=== PATIENT | female | born 1995 | race Caucasian/White ===

== ENCOUNTER 2024-07-31 05:21 | Inpatient (IN) ==
[2024-07-31] MEDS ORDERED: OXYTOCIN 30 UNITS/NSS 30 UNITS/500 ML BAG IV PRN (06:31)
[2024-07-31] MEDS ORDERED: LIDOCAINE 1% LOCAL 20 ML VIAL INFIL PRN (06:31)
[2024-07-31] MEDS ORDERED: ONDANSETRON INJ 2 MG/ML 2 ML VIAL IV STA (06:37)
--- NOTE | 2024-07-31 06:41 | Labor Progress Brief Note ---
Date of Service July 31, 2024 Subjective 29yo at 40w0d today c/b A1GDM, GBS+, nonimmune to HepB, presents to hospital with recent events as follows: Around midnight, awoke with disorganized cramping and a headache. Took tylenol and the headache improved, she was able to fall back asleep. At 4am awoke again with contractions that were organized, painful, and Q2-3min. She was also nauseated and began vomiting. No LOF or VB, good FM. At that point she began coming in to hospital. On arrival to hospital the patient notes her contractions seem to be easing; they were too painful to speak through when she left home, and now they're both milder and further apart. The nausea has continued and she vomited on her way up to L&D, now requesting antiemetic. She does not have BAPTISTE at this time, nor vision changes, denies swelling, but does have upper abdominal / epigastric pain along with the nausea which are new today. BP on arrival 164/93, then 154/93 on repeat. Urine dip 2+ protein. Assessment & Plan (1) Preeclampsia: Plan: Patient's initial 2 BP's were elevated and she has 2+ protein on urine dip. This leads me to diagnose preeclampsia. We discussed that she may or may not be in early labor as well, but at 40wk the preeclampsia means I would like to admit and augment vs induce labor for her. She is agreeable to that. Presently her BAPTISTE has resolved, and she has no clonus, no RUQ ttp nor edema on exam. We will check labs/serial BP but hold off diagnosing her with severe features at this time. Patient is to notify us promptly if her BAPTISTE returns. She is aware that magnesium therapy will be initiated if she qualifies as with severe features. A1GDM with most recent growth scan EFW 40, AC 39. Vertex at that time on 07/08. Will check FSBG here on L&D. GBS pos and agreeable to PCN, no allergies. Comfortable starting pitocin as contractions have spaced apart, does not desire trial of exp mgmt. Physical Exam Physical Exam: Semi-leung, alert, NAD. Speaking fluidly. Mother and FOB at bedside. Eyes: PERRL, conjunctivae normal, anicteric sclerae Neck: supple Respiratory: normal respiratory effort and able to speak in complete sentences; no respiratory distress Cardiovascular: Rate/Rhythm: regular rate and regular rhythm Gastrointestinal (Abdomen): Gravid / AGA, nontender Musculoskeletal: no cyanosis or clubbing, extremities motor strength 5/5 Skin: no rashes, warm and dry Neurologic: patellar DTR slightly brisk but no clonus, no pedal edema Psychiatric: A+Ox3, euthymic affect Genitourinary: Per RN exam pt is 2/60/-2 and posterior. Nurse felt confident the vertex was presenting. No LOF, no VB evident. Results & Data Vital Signs (Past 12 Hours) Vital Signs Temp Pulse Resp BP O2 Del Method 07/31/24 06:03 66 154/93 H 07/31/24 05:50 97.7 F 18 Room Air 07/31/24 05:44 97.7 F 62 18 164/93 H Coding Level of Care Code None Diagnoses Preeclampsia O14.90
[2024-07-31] MEDS: LACTATED RINGER'S 1,000 ML IV PRN (07:05)
[2024-07-31 07:10] LABS: Creatinine Urine Random 249.7 mg/dl; Protein Creatinine Ratio Urine 0.6 (0-0.2); Total Protein Urine Random 153.1 mg/dl (0-11.9)
[2024-07-31] MEDS: OXYTOCIN 30 UNITS/NSS 30 UNITS/500 ML BAG IV PRN ×2 (07:30→21:30)
[2024-07-31 07:36] LABS: Hemoglobin 12.9 g/dl (12.0-16.0); Mean Corpuscular Hemoglobin 28.3 pg (25.0-34.0); Mean Corpuscular Hgb Conc 33.9 g/dL (32.0-36.0); Mean Corpuscular Volume 83.3 fL (80.0-100.0); Mean Platelet Volume 10.6 fL (9.4-12.4); Platelet Count 216 K/uL (130-400); RDW Coefficient of Variation 13.9 % (11.5-14.5); RDW Standard Deviation 42.3 fL (36.4-46.3); Red Blood Count 4.56 M/uL (4.20-5.40); White Blood Count 14.06 K/ul (4.8-10.8)
[2024-07-31 07:46] LABS: Albumin Globulin Ratio 1.1 (0.9-2); Albumin Level 3.2 gm/dl (3.4-5.0); BUN Creatinine Ratio 19.1 (10-20); Bilirubin Direct 0.2 mg/dl (0-0.2); Bilirubin,Total 0.9 mg/dl (0.2-1.0); Calcium 8.5 mg/dl (8.6-10.3); Creatinine Clr Calc Pharmacy 130.2 ml/min; Globulin 2.8 gm/dl (2.5-4.0); Potassium 4.9 mmol/L (3.5-5.1)
--- NOTE | 2024-07-31 07:57 | Anesthesiology Consultation ---
Date of Service July 31, 2024 Assessment & Plan Chart Review Chart Review: Acceptable Risk for Surgery and Patient NOT seen in Pre Admission Testing Consults Requested none ASA ASA3 Proposed Anesthesia Anesthesia Type: Labor Epidural and CSE History Height/Weight Height: 5 ft 4 in Weight: 88.451 kg Allergies Allergy/AdvReac Type Severity Reaction Status Date / Time No Known Allergies Allergy Verified 07/31/24 05:48 Medications Home Medications Medication Instructions Recorded Confirmed Last Taken 21-iron fu-folic acid 1 tab PO DAILY 12/15/23 07/31/24 07/30/24 [ Complete] acetone (urine) test (Ketone Urine #50 ea 03/11/24 07/28/24 Unknown Test strips) blood sugar diagnostic (OneTouch #150 ea 03/11/24 07/28/24 Unknown Verio test strips) blood-glucose meter (OneTouch #1 ea 03/11/24 07/28/24 Unknown Verio Reflect Meter) lancets 33 gauge (OneTouch Delica #150 ea 03/11/24 07/28/24 Unknown Plus Lancet) Active Medications Generic Name Dose Route Start Last Admin Trade Name Freq PRN Reason Stop Dose Admin Lactated Ringer's 1,000 mls @ 125 mls/hr 07/31/24 06:31 07/31/24 07:30 Lr IV 08/01/24 06:30 125 mls/hr .Q8H PRN Infusion L&D Protocol Protocol Oxytocin 30 units in 500 mls @ 2 mls/hr 07/31/24 06:31 07/31/24 07:30 Pitocin 30 Units/Nss IV 08/02/24 06:30 0.12 units/hr .Q24H PRN 2 mls/hr Labor Induction/Augmentation Administration Protocol 0.12 UNITS/HR Past Medical History Medical History Varicella vaccination Left ureteral calculus Hydronephrosis Pelvic pain Abnormal ultrasound of uterus Nephrolithiasis age 4 Hyperlipidemia Kidney stone on left side History of kidney infection AGE 4 & SOMETHING WITH REFLUX IN URETER obese Gestational DM Gerd Preeclampsia Exercise / Class Metabolic Activity II 4-5 Yardwork/Stairs/Walk up hill Past Family History Family History Mother Cervical cancer age 40s Grandmother (Maternal) Myocardial infarction Coronary heart disease Father Hypertension Dyslipidemia Denies family history of Ovarian cancer Prostate cancer Breast cancer Colorectal cancer Past Surgical History Surgical History History of lithotripsy H/O wisdom tooth extraction Past Anesthesia History No Hx of Anesthesia Complications and No Family Hx of Anesthesia Complications History of PONV No Hx of PONV and No Hx of Motion Sickness Social History Smoking Status: Never smoker Do You Dip or Chew Tobacco: No Hx Alcohol Use: Yes alcohol intake frequency: holidays/special occasions only Hx Substance Use: No substance use type: does not use Physical Exam Vital Signs Last Vital Signs Temp 36.3 C L 07/31/24 07:01 Pulse 75 07/31/24 07:47 Resp 20 07/31/24 07:01 BP 138/90 07/31/24 07:47 O2 Del Method Room Air 07/31/24 05:50 Testing Laboratory Results 07/31/24 07:13 07/31/24 07:13 07/31/24 07:08 POC Glucose 120 H
--- NOTE | 2024-07-31 08:14 | Labor Progress Brief Note ---
Date of Service July 31, 2024 Assessment & Plan (1) Preeclampsia: Plan: AST/ALT elevated to multiples of normal. Cr, Plt OK currently. Will initiate magnesium therapy. Glucose below 130 so no need for insulin protocol at this time. Admission and Anticipated Discharge Date Admission Date: July 31, 2024 Results & Data Vital Signs (Past 12 Hours) Vital Signs Temp Pulse Resp BP O2 Del Method 07/31/24 08:00 75 143/92 H 07/31/24 07:47 75 138/90 07/31/24 07:30 78 148/98 H 07/31/24 07:17 73 144/93 H 07/31/24 07:01 20 07/31/24 07:01 97.3 F L 20 07/31/24 07:00 71 139/91 07/31/24 06:03 66 154/93 H 07/31/24 05:50 97.7 F 18 Room Air 07/31/24 05:44 97.7 F 62 18 164/93 H Laboratory Results Laboratory Results - last 24 hr 07/31/24 07/31/24 07/31/24 05:45 07:08 07:13 WBC 14.06 H RBC 4.56 Hgb 12.9 Hct 38.0 MCV 83.3 MCH 28.3 MCHC 33.9 RDW Std Deviation 42.3 RDW Coeff of Helder 13.9 Plt Count 216 MPV 10.6 Sodium 136 Potassium 4.9 Chloride 105 Carbon Dioxide 25 Anion Gap 6 BUN 13 Creatinine 0.68 Est Cr Clr Drug Dosing 130.2 eGFR 120.08 BUN/Creatinine Ratio 19.1 Glucose 120 H POC Glucose 120 H Calcium 8.5 L Total Bilirubin 0.9 Direct Bilirubin 0.2 AST 176 H ALT 146 H Alkaline Phosphatase 175 H Total Protein 6.0 Albumin 3.2 L Globulin 2.8 Albumin/Globulin Ratio 1.1 Ur Random Creatinine 249.7 U Random Total Protein 153.1 H Protein/Creatinin Ratio 0.6 H Treponema pallidum Ab Pending Vital Signs Temp Pulse Resp BP O2 Del Method 07/31/24 08:00 75 143/92 H 07/31/24 07:47 75 138/90 07/31/24 07:30 78 148/98 H 07/31/24 07:17 73 144/93 H 07/31/24 07:01 20 07/31/24 07:01 97.3 F L 20 07/31/24 07:00 71 139/91 07/31/24 06:03 66 154/93 H 07/31/24 05:50 97.7 F 18 Room Air 07/31/24 05:44 97.7 F 62 18 164/93 H Intake and Output 07/30/24 07/31/24 07/31/24 22:59 06:59 14:59 Intake Total 416.25 / 416.25 Balance 416.25 / 416.25 Intake: IV 416.25 / 416.25 Lactated Ringer's 1,000 ml @ 416.25 / 416.25 125 mls/hr IV .Q8H PRN Rx#: [id number] Other: Weight 195 lb 195 lb Weight Measurement Method Last Office Visit Patient Weight 08/01/24 06:59 Weight 195 lb Coding Level of Care Code None Diagnoses Preeclampsia O14.90
[2024-07-31] MEDS: PENICILLIN GK 6 MU in DEXTROSE 5% 250 ML IV STA (08:17)
[2024-07-31] MEDS: LIDOCAINE 2% JELLY 5 ML TUBE EXT ONE (08:43)
[2024-07-31] MEDS: MAGNESIUM SULFATE / WTR 40 GM/1,000 ML BAG IV SCH (08:43)
--- NOTE | 2024-07-31 08:43 | Labor Progress Brief Note ---
Date of Service July 31, 2024 Subjective Resting in bed. Went with Dr. Gaspar when discussing the initiation of mag for severe pet by liver function criteria. Pressures are elevated but not in severe range. all other labs within normal limits. Assessment & Plan (1) Preeclampsia: (2) Gestational diabetes: Plan iol for severe pet. initiating magnesium. fht mostly category one, but will need close following as has had periods of minimal variability, and this is the appearance prior to initiating mag. plan bolus and position change as she is currently flat on her back. Plan discussed with the patient , Dr. Gaspar and support person. Admission and Anticipated Discharge Date Admission Date: July 31, 2024 Physical Exam Physical Exam: cx--deferred toco--q2-4, pit at 2 efm--150s with mostly mod variability, but short periods of minimal variability, small accels, no 15x15, some ? decels--will bolus and do position changes Results & Data Vital Signs (Past 12 Hours) Vital Signs Temp Pulse Resp BP O2 Del Method 07/31/24 08:00 75 143/92 H 07/31/24 07:47 75 138/90 07/31/24 07:30 78 148/98 H 07/31/24 07:17 73 144/93 H 07/31/24 07:01 20 07/31/24 07:01 36.3 C L 20 07/31/24 07:00 71 139/91 07/31/24 06:03 66 154/93 H 07/31/24 05:50 36.5 C 18 Room Air 07/31/24 05:44 36.5 C 62 18 164/93 H Coding Level of Care Code None Diagnoses Preeclampsia O14.90 Gestational diabetes O24.419
[2024-07-31] MEDS: MAG SULFATE 6GM BOLUS FROM BAG IV ONE (08:56)
--- NOTE | 2024-07-31 10:11 | Labor Progress Brief Note ---
Date of Service July 31, 2024 Subjective noting more painful contractions Assessment & Plan (1) Preeclampsia: (2) Gestational diabetes: Plan Sugars controlled. fht concerning at times with some late decels that have responded to position changes. Unfortunately we are very remove from delivery. discussed my concerns about this fht in setting of remotness of delivery. discussed going to need more pitocin to get contractions that will affect cervical change and given the fh tracing at times, will need to be very cautious and may not be able to achieve adequate contractions for labor because of response. Continue to watch very carefully. Still wtih intermittent good variabiltiy in spite of magnesium. Discussed if fetus unable to tolerate labor , will need to proceed with c/s. Patient and so express understanding of the situation. Admission and Anticipated Discharge Date Admission Date: July 31, 2024 Physical Exam Physical Exam: cx--deferred toco--q2-5, pit at 6 efm--150s with min to mod variability, decels at time that are late in appeara nce but have been resolving with position changes. Results & Data Vital Signs (Past 12 Hours) Vital Signs Temp Pulse Resp BP O2 Del Method 07/31/24 10:02 104 H 155/98 H 07/31/24 09:46 90 127/74 07/31/24 09:32 93 H 134/79 07/31/24 09:18 86 16 125/73 07/31/24 08:00 75 143/92 H 07/31/24 07:47 75 138/90 07/31/24 07:30 78 148/98 H 07/31/24 07:17 73 144/93 H 07/31/24 07:01 20 07/31/24 07:01 36.3 C L 20 07/31/24 07:00 71 139/91 07/31/24 06:03 66 154/93 H 07/31/24 05:50 36.5 C 18 Room Air 07/31/24 05:44 36.5 C 62 18 164/93 H Coding Level of Care Code None Diagnoses Preeclampsia O14.90 Gestational diabetes O24.419
--- NOTE | 2024-07-31 10:58 | Labor Progress Brief Note ---
Date of Service July 31, 2024 Subjective patient uncomfortable and desires epidural, ummky Assessment & Plan (1) Preeclampsia: Plan making excellent progress. will get epidural. once settled in, arom. Continue to watch fetus closely mostly category one strip. anticipate . Admission and Anticipated Discharge Date Admission Date: July 31, 2024 Physical Exam Physical Exam: cx--6-7/thin/bulging bag us--cephalic toco--q2-4, pit at 6 efm--150s wtih mod variability, decels are early with contractions now with a very rare late appearing decel Results & Data Vital Signs (Past 12 Hours) Vital Signs Temp Pulse Resp BP Pulse Ox O2 Del Method 07/31/24 10:53 116 H 97 07/31/24 10:48 97 H 96 07/31/24 10:43 113 H 99 07/31/24 10:17 88 126/71 07/31/24 10:15 18 07/31/24 10:02 104 H 18 155/98 H 07/31/24 09:46 90 127/74 07/31/24 09:32 93 H 134/79 07/31/24 09:18 86 16 125/73 07/31/24 08:00 75 143/92 H 07/31/24 07:47 75 138/90 07/31/24 07:30 78 148/98 H 07/31/24 07:17 73 144/93 H 07/31/24 07:01 20 07/31/24 07:01 36.3 C L 20 07/31/24 07:00 71 139/91 07/31/24 06:03 66 154/93 H 07/31/24 05:50 36.5 C 18 Room Air 07/31/24 05:44 36.5 C 62 18 164/93 H Coding Level of Care Code None Diagnoses Preeclampsia O14.90
[2024-07-31] MEDS: fentaNYL citrate PF 100 MCG/2 ML VIAL ONE (11:23)
[2024-07-31] MEDS: fentANYL 2 MCG/ML BUPIVacaine 0.125%-NSS 100ML BAG ONE (11:24)
[2024-07-31] MEDS ORDERED: NALBUPHINE HCL INJ 10 MG/ML AMP IV PRN (11:27)
[2024-07-31] MEDS ORDERED: PROMETHAZINE 6.25 MG/50.25 ML BAG IV PRN (11:27)
[2024-07-31] MEDS ORDERED: BUPIVACAINE 0.25% PF 30 ML VIAL EPI PRN (11:27)
[2024-07-31] MEDS ORDERED: diphenhydrAMINE 50 MG/ML VIAL IV PRN (11:27)
[2024-07-31] MEDS ORDERED: ROPIVACAINE 0.5% PF 5 MG/ML 20 ML VIAL EPI PRN (11:27)
[2024-07-31] MEDS ORDERED: NALOXONE HCL 1 MG in SODIUM CHLORIDE 0.9% 1,000 ML IV PRN (11:27)
[2024-07-31] MEDS ORDERED: NALOXONE HCL 0.4 MG/1 ML VIAL/CARP IV PRN (11:27)
[2024-07-31] MEDS ORDERED: LIDOCAINE 2% MPF LOCAL 5 ML VIAL EPI PRN (11:27)
[2024-07-31] MEDS ORDERED: SODIUM CHLORIDE 0.9% PF INJ 10 ML VIAL EPI PRN (11:27)
[2024-07-31] MEDS ORDERED: fentaNYL citrate PF 100 MCG/2 ML VIAL EPI PRN (11:27)
[2024-07-31] MEDS ORDERED: ePHEDrine sulfate 50 MG/ML AMP IV PRN (11:27)
[2024-07-31] MEDS: BUPIVACAINE 0.25% PF 30 ML VIAL ONE (11:29)
[2024-07-31] MEDS: LIDOCAINE 2%/EPINEPHRINE 1:200,000 20 ML PF ONE (11:30)
[2024-07-31] MEDS: PENICILLIN GK 3 MU in DEXTROSE 5% 100 ML IV PRN (12:05)
--- NOTE | 2024-07-31 12:06 | Labor Progress Brief Note ---
Date of Service July 31, 2024 Subjective comfortable Assessment & Plan (1) Preeclampsia: Plan arom done, continue current management. Fetus overall reassuring category two, variability, good. Continue to monitor very closely, position change etc. Making good progress. Admission and Anticipated Discharge Date Admission Date: July 31, 2024 Physical Exam Physical Exam: cx--6-7/100/-2 arom--clear toco--q2-4min, pit at 6 efm--150s with mod variability, +scalp stim, early with some contractions, very rare late appearance. Results & Data Vital Signs (Past 12 Hours) Vital Signs Temp Pulse Resp BP Pulse Ox O2 Del Method 07/31/24 11:58 108 H 97 07/31/24 11:53 95 H 97 07/31/24 11:48 97 H 97 07/31/24 11:44 100 H 134/75 07/31/24 11:43 95 H 97 07/31/24 11:40 99 H 135/76 07/31/24 11:38 98 H 96 07/31/24 11:33 97 07/31/24 11:33 106 H 07/31/24 11:33 100 H 134/79 07/31/24 11:31 104 H 131/75 07/31/24 11:29 106 H 134/79 07/31/24 11:28 106 H 97 07/31/24 11:27 117 H 130/87 07/31/24 11:25 100 H 137/85 07/31/24 11:23 114 H 131/83 96 07/31/24 11:18 109 H 96 07/31/24 11:13 124 H 97 07/31/24 11:08 109 H 97 07/31/24 11:03 120 H 98 07/31/24 11:02 117 H 179/101 H 07/31/24 10:58 112 H 98 07/31/24 10:53 116 H 97 07/31/24 10:48 97 H 96 07/31/24 10:43 113 H 99 07/31/24 10:17 88 126/71 07/31/24 10:15 18 07/31/24 10:02 104 H 18 155/98 H 07/31/24 09:46 90 127/74 07/31/24 09:32 93 H 134/79 07/31/24 09:18 86 16 125/73 07/31/24 08:00 75 143/92 H 07/31/24 07:47 75 138/90 07/31/24 07:30 78 148/98 H 07/31/24 07:17 73 144/93 H 07/31/24 07:01 20 07/31/24 07:01 36.3 C L 20 07/31/24 07:00 71 139/91 07/31/24 06:03 66 154/93 H 07/31/24 05:50 36.5 C 18 Room Air 07/31/24 05:44 36.5 C 62 18 164/93 H Coding Level of Care Code None Diagnoses Preeclampsia O14.90
[2024-07-31] MEDS: fentaNYL citrate PF 100 MCG/2 ML VIAL EPI STA (13:18)
[2024-07-31] MEDS: SODIUM CHLORIDE 0.9% PF INJ 10 ML VIAL ONE (13:18)
[2024-07-31] MEDS: BUPIVACAINE 0.25% PF 30 ML VIAL EPI STA (13:18)
[2024-07-31] MEDS: SODIUM CHLORIDE 0.9% PF INJ 10 ML VIAL EPI STA (13:19)
[2024-07-31] MEDS: LIDOCAINE 2%/EPINEPHRINE 1:200,000 20 ML PF EPI STA (13:19)
--- NOTE | 2024-07-31 13:20 | Labor Progress Brief Note ---
Date of Service July 31, 2024 Subjective comfortable Assessment & Plan (1) Preeclampsia: Plan Will now need to attempt position change and increasing pit and see how fetus will handle it. Category one. no futher concern for lates at this point. Admission and Anticipated Discharge Date Admission Date: July 31, 2024 Physical Exam Physical Exam: cx--unchanged toco--q2-3, pit at 6 efm--150s with min to mod variability, +scalp stim. early with contractions. Results & Data Vital Signs (Past 12 Hours) Vital Signs Temp Pulse Resp BP Pulse Ox O2 Del Method 07/31/24 13:18 91 H 136/70 07/31/24 13:13 95 H 97 07/31/24 13:08 97 H 97 07/31/24 13:04 96 H 147/89 H 07/31/24 13:03 93 H 97 07/31/24 12:58 103 H 96 07/31/24 12:53 108 H 96 07/31/24 12:48 97 07/31/24 12:48 112 H 07/31/24 12:48 101 H 144/85 H 07/31/24 12:44 98 H 93 07/31/24 12:43 102 H 95 07/31/24 12:38 100 H 98 07/31/24 12:34 92 H 94 07/31/24 12:33 105 H 139/85 97 07/31/24 12:28 96 H 96 07/31/24 12:27 36.9 C 07/31/24 12:23 97 H 96 07/31/24 12:18 97 07/31/24 12:18 103 H 07/31/24 12:18 106 H 142/87 H 07/31/24 12:13 101 H 98 07/31/24 12:08 96 H 96 07/31/24 12:03 116 H 95 07/31/24 11:58 108 H 97 07/31/24 11:53 95 H 97 07/31/24 11:48 97 H 97 07/31/24 11:44 100 H 134/75 07/31/24 11:43 95 H 97 07/31/24 11:40 99 H 135/76 07/31/24 11:38 98 H 96 07/31/24 11:33 97 07/31/24 11:33 106 H 07/31/24 11:33 100 H 134/79 07/31/24 11:31 104 H 131/75 07/31/24 11:29 106 H 134/79 07/31/24 11:28 106 H 97 07/31/24 11:27 117 H 130/87 07/31/24 11:25 100 H 137/85 07/31/24 11:23 114 H 131/83 96 07/31/24 11:18 109 H 96 07/31/24 11:13 124 H 97 07/31/24 11:08 109 H 97 07/31/24 11:03 120 H 98 07/31/24 11:02 117 H 179/101 H 07/31/24 10:58 112 H 98 07/31/24 10:53 116 H 97 07/31/24 10:48 97 H 96 07/31/24 10:43 113 H 99 07/31/24 10:17 88 126/71 07/31/24 10:15 18 07/31/24 10:02 104 H 18 155/98 H 07/31/24 09:46 90 127/74 07/31/24 09:32 93 H 134/79 07/31/24 09:18 86 16 125/73 07/31/24 08:00 75 143/92 H 07/31/24 07:47 75 138/90 07/31/24 07:30 78 148/98 H 07/31/24 07:17 73 144/93 H 07/31/24 07:01 20 07/31/24 07:01 36.3 C L 20 07/31/24 07:00 71 139/91 07/31/24 06:03 66 154/93 H 07/31/24 05:50 36.5 C 18 Room Air 07/31/24 05:44 36.5 C 62 18 164/93 H Coding Level of Care Code None Diagnoses Preeclampsia O14.90
--- NOTE | 2024-07-31 15:08 | Labor Progress Brief Note ---
Date of Service July 31, 2024 Subjective comfortable, more pressure in bottom Assessment & Plan (1) Preeclampsia: Plan making slow but postive change, concerned that the baby has not come down in the pelvis, fetus category two wtih an occasional late appearing decel that immediately improve with position change. Overall reassuring fetus . Will continue current management with very close monitoring. Admission and Anticipated Discharge Date Admission Date: July 31, 2024 Physical Exam Physical Exam: cx--9/100/-2 toco--q2-4min, pit at 10 efm--150s wtih mod variability, +scalp stim , very rare late in certain positions that resolve with position change, likes high fowlers the best. still great variability, despite being on mag Results & Data Vital Signs (Past 12 Hours) Vital Signs Temp Pulse Resp BP Pulse Ox O2 Del Method 07/31/24 14:58 106 H 160/97 H 96 07/31/24 14:53 105 H 97 07/31/24 14:51 105 H 155/103 H 07/31/24 14:48 101 H 96 07/31/24 14:43 117 H 97 07/31/24 14:38 107 H 96 07/31/24 14:35 106 H 170/90 H 07/31/24 14:33 97 07/31/24 14:33 108 H 07/31/24 14:33 109 H 135/114 H 07/31/24 14:28 99 H 96 07/31/24 14:23 115 H 97 07/31/24 14:18 105 H 152/90 H 96 07/31/24 14:13 101 H 96 07/31/24 14:08 98 H 96 07/31/24 14:04 18 07/31/24 14:03 99 H 145/87 H 96 07/31/24 14:02 18 07/31/24 14:02 37.0 C 18 07/31/24 13:58 96 H 97 07/31/24 13:53 96 H 96 07/31/24 13:48 101 H 147/96 H 97 07/31/24 13:43 96 H 97 07/31/24 13:38 96 H 97 07/31/24 13:33 105 H 144/77 H 97 07/31/24 13:28 94 H 97 07/31/24 13:23 91 H 96 07/31/24 13:21 18 04/12/25 13:18 97 07/31/24 13:18 92 H 07/31/24 13:18 91 H 136/70 07/31/24 13:13 95 H 97 07/31/24 13:08 97 H 97 07/31/24 13:04 96 H 18 147/89 H 07/31/24 13:03 93 H 97 07/31/24 13:01 16 07/31/24 13:01 16 07/31/24 12:58 103 H 96 07/31/24 12:53 108 H 96 07/31/24 12:48 97 07/31/24 12:48 112 H 07/31/24 12:48 101 H 144/85 H 07/31/24 12:44 98 H 93 07/31/24 12:43 102 H 95 07/31/24 12:38 100 H 98 07/31/24 12:34 92 H 94 07/31/24 12:33 105 H 139/85 97 07/31/24 12:28 96 H 96 07/31/24 12:27 36.9 C 07/31/24 12:23 97 H 96 07/31/24 12:18 97 07/31/24 12:18 103 H 07/31/24 12:18 106 H 142/87 H 07/31/24 12:13 101 H 98 07/31/24 12:08 96 H 96 07/31/24 12:03 116 H 95 07/31/24 11:58 108 H 97 07/31/24 11:53 95 H 97 07/31/24 11:48 97 H 97 07/31/24 11:44 100 H 134/75 07/31/24 11:43 95 H 97 07/31/24 11:40 99 H 135/76 07/31/24 11:38 98 H 96 07/31/24 11:33 97 07/31/24 11:33 106 H 07/31/24 11:33 100 H 134/79 07/31/24 11:31 104 H 131/75 07/31/24 11:29 106 H 134/79 07/31/24 11:28 106 H 97 07/31/24 11:27 117 H 130/87 07/31/24 11:25 100 H 137/85 07/31/24 11:23 114 H 131/83 96 07/31/24 11:18 109 H 96 07/31/24 11:13 124 H 97 07/31/24 11:08 109 H 97 07/31/24 11:03 120 H 98 07/31/24 11:02 117 H 179/101 H 07/31/24 10:58 112 H 98 07/31/24 10:53 116 H 97 07/31/24 10:48 97 H 96 07/31/24 10:43 113 H 99 07/31/24 10:17 88 126/71 07/31/24 10:15 18 07/31/24 10:02 104 H 18 155/98 H 07/31/24 09:46 90 127/74 07/31/24 09:32 93 H 134/79 07/31/24 09:18 86 16 125/73 07/31/24 08:00 75 143/92 H 07/31/24 07:47 75 138/90 07/31/24 07:30 78 148/98 H 07/31/24 07:17 73 144/93 H 07/31/24 07:01 20 07/31/24 07:01 36.3 C L 20 07/31/24 07:00 71 139/91 07/31/24 06:03 66 154/93 H 07/31/24 05:50 36.5 C 18 Room Air 07/31/24 05:44 36.5 C 62 18 164/93 H Coding Level of Care Code None Diagnoses Preeclampsia O14.90
[2024-07-31] MEDS: ONDANSETRON INJ 2 MG/ML 2 ML VIAL IV PRN (15:47)
[2024-07-31] MEDS: fentANYL 2 MCG/ML BUPIVacaine 0.125%-NSS 100ML BAG EPI PRN (16:34)
--- NOTE | 2024-07-31 17:17 | Labor Progress Brief Note ---
Date of Service July 31, 2024 Subjective Tolerated multiple position changes, just knee /chest Assessment & Plan (1) Preeclampsia: Plan start pushing. monitor closely. hope for . Admission and Anticipated Discharge Date Admission Date: July 31, 2024 Physical Exam Physical Exam: cx--c/c/0 toco--q2-3min, pit at 12 efm--140s wtih mod variability, small accels, early decels, no late appearing. Results & Data Vital Signs (Past 12 Hours) Vital Signs Temp Pulse Resp BP Pulse Ox O2 Del Method 07/31/24 17:13 120 H 97 07/31/24 17:08 108 H 96 07/31/24 17:04 18 07/31/24 17:03 110 H 140/87 96 07/31/24 16:59 16 07/31/24 16:59 16 07/31/24 16:58 109 H 96 07/31/24 16:53 107 H 97 07/31/24 16:49 105 H 144/89 H 07/31/24 16:48 106 H 97 07/31/24 16:43 108 H 97 07/31/24 16:38 106 H 97 07/31/24 16:34 107 H 164/99 H 07/31/24 16:33 106 H 97 07/31/24 16:28 105 H 95 07/31/24 16:23 104 H 96 07/31/24 16:19 102 H 153/94 H 07/31/24 16:18 102 H 96 07/31/24 16:13 103 H 97 07/31/24 16:10 18 07/31/24 16:10 36.6 C 18 07/31/24 16:08 110 H 95 07/31/24 16:03 98 H 134/73 97 07/31/24 15:59 20 07/31/24 15:59 20 07/31/24 15:58 110 H 91 07/31/24 15:53 105 H 96 07/31/24 15:49 107 H 168/91 H 07/31/24 15:48 111 H 97 07/31/24 15:43 122 H 97 07/31/24 15:38 112 H 97 07/31/24 15:33 97 07/31/24 15:33 109 H 07/31/24 15:33 104 H 169/93 H 94 07/31/24 15:28 115 H 96 07/31/24 15:23 102 H 96 07/31/24 15:18 104 H 156/93 H 96 07/31/24 15:13 104 H 95 07/31/24 15:08 108 H 97 07/31/24 15:04 105 H 18 154/96 H 07/31/24 15:03 104 H 96 07/31/24 14:58 106 H 160/97 H 96 07/31/24 14:53 105 H 97 07/31/24 14:51 105 H 155/103 H 07/31/24 14:48 101 H 96 07/31/24 14:43 117 H 97 07/31/24 14:38 107 H 96 07/31/24 14:35 106 H 170/90 H 07/31/24 14:33 97 07/31/24 14:33 108 H 07/31/24 14:33 109 H 135/114 H 07/31/24 14:28 99 H 96 07/31/24 14:23 115 H 97 07/31/24 14:18 105 H 152/90 H 96 07/31/24 14:13 101 H 96 07/31/24 14:08 98 H 96 07/31/24 14:04 18 07/31/24 14:03 99 H 145/87 H 96 07/31/24 14:02 18 07/31/24 14:02 37.0 C 18 07/31/24 13:58 96 H 97 07/31/24 13:53 96 H 96 07/31/24 13:48 101 H 147/96 H 97 07/31/24 13:43 96 H 97 07/31/24 13:38 96 H 97 07/31/24 13:33 105 H 144/77 H 97 07/31/24 13:28 94 H 97 07/31/24 13:23 91 H 96 07/31/24 13:21 18 07/31/24 13:18 97 07/31/24 13:18 92 H 07/31/24 13:18 91 H 136/70 07/31/24 13:13 95 H 97 07/31/24 13:08 97 H 97 07/31/24 13:04 96 H 18 147/89 H 07/31/24 13:03 93 H 97 07/31/24 13:01 16 04/12/25 13:01 16 07/31/24 12:58 103 H 96 07/31/24 12:53 108 H 96 07/31/24 12:48 97 07/31/24 12:48 112 H 07/31/24 12:48 101 H 144/85 H 07/31/24 12:44 98 H 93 07/31/24 12:43 102 H 95 07/31/24 12:38 100 H 98 07/31/24 12:34 92 H 94 07/31/24 12:33 105 H 139/85 97 07/31/24 12:28 96 H 96 07/31/24 12:27 36.9 C 07/31/24 12:23 97 H 96 07/31/24 12:18 97 07/31/24 12:18 103 H 07/31/24 12:18 106 H 142/87 H 07/31/24 12:13 101 H 98 07/31/24 12:08 96 H 96 07/31/24 12:03 116 H 95 07/31/24 11:58 108 H 97 07/31/24 11:53 95 H 97 07/31/24 11:48 97 H 97 07/31/24 11:44 100 H 134/75 07/31/24 11:43 95 H 97 07/31/24 11:40 99 H 135/76 07/31/24 11:38 98 H 96 07/31/24 11:33 97 07/31/24 11:33 106 H 07/31/24 11:33 100 H 134/79 07/31/24 11:31 104 H 131/75 07/31/24 11:29 106 H 134/79 07/31/24 11:28 106 H 97 07/31/24 11:27 117 H 130/87 07/31/24 11:25 100 H 137/85 07/31/24 11:23 114 H 131/83 96 07/31/24 11:18 109 H 96 07/31/24 11:13 124 H 97 07/31/24 11:08 109 H 97 07/31/24 11:03 120 H 98 07/31/24 11:02 117 H 179/101 H 07/31/24 10:58 112 H 98 07/31/24 10:53 116 H 97 07/31/24 10:48 97 H 96 07/31/24 10:43 113 H 99 07/31/24 10:17 88 126/71 07/31/24 10:15 18 07/31/24 10:02 104 H 18 155/98 H 07/31/24 09:46 90 127/74 07/31/24 09:32 93 H 134/79 07/31/24 09:18 86 16 125/73 07/31/24 08:00 75 143/92 H 07/31/24 07:47 75 138/90 07/31/24 07:30 78 148/98 H 07/31/24 07:17 73 144/93 H 07/31/24 07:01 20 07/31/24 07:01 36.3 C L 20 07/31/24 07:00 71 139/91 07/31/24 06:03 66 154/93 H 07/31/24 05:50 36.5 C 18 Room Air 07/31/24 05:44 36.5 C 62 18 164/93 H Coding Level of Care Code None Diagnoses Preeclampsia O14.90
--- NOTE | 2024-07-31 18:15 | Labor Progress Brief Note ---
Date of Service July 31, 2024 Subjective pushing Assessment & Plan (1) Preeclampsia: Plan continue stage two. fetus tolerating. pushing about an hour Admission and Anticipated Discharge Date Admission Date: July 31, 2024 Physical Exam Physical Exam: very little descent noted in this last hour. toco--q2-3, pit at 12 efm--150s with mod variability, variables with pushing Results & Data Vital Signs (Past 12 Hours) Vital Signs Temp Pulse Resp BP Pulse Ox 07/31/24 18:08 122 H 97 07/31/24 18:03 119 H 96 07/31/24 17:58 121 H 96 07/31/24 17:53 118 H 96 07/31/24 17:48 122 H 96 07/31/24 17:43 108 H 94 07/31/24 17:42 20 07/31/24 17:42 37.7 C H 20 07/31/24 17:38 110 H 97 07/31/24 17:34 111 H 159/89 H 07/31/24 17:33 121 H 95 07/31/24 17:28 124 H 97 07/31/24 17:23 126 H 97 07/31/24 17:18 118 H 143/103 H 96 07/31/24 17:13 120 H 97 07/31/24 17:08 108 H 96 07/31/24 17:04 18 07/31/24 17:03 110 H 140/87 96 07/31/24 16:59 16 07/31/24 16:59 16 07/31/24 16:58 109 H 96 07/31/24 16:53 107 H 97 07/31/24 16:49 105 H 144/89 H 07/31/24 16:48 106 H 97 07/31/24 16:43 108 H 97 07/31/24 16:38 106 H 97 07/31/24 16:34 107 H 164/99 H 07/31/24 16:33 106 H 97 07/31/24 16:28 105 H 95 07/31/24 16:23 104 H 96 07/31/24 16:19 102 H 153/94 H 07/31/24 16:18 102 H 96 07/31/24 16:13 103 H 97 07/31/24 16:10 18 07/31/24 16:10 36.6 C 18 07/31/24 16:08 110 H 95 07/31/24 16:03 98 H 134/73 97 07/31/24 15:59 20 07/31/24 15:59 20 07/31/24 15:58 110 H 91 07/31/24 15:53 105 H 96 07/31/24 15:49 107 H 168/91 H 07/31/24 15:48 111 H 97 07/31/24 15:43 122 H 97 07/31/24 15:38 112 H 97 07/31/24 15:33 97 07/31/24 15:33 109 H 07/31/24 15:33 104 H 169/93 H 94 07/31/24 15:28 115 H 96 07/31/24 15:23 102 H 96 07/31/24 15:18 104 H 156/93 H 96 07/31/24 15:13 104 H 95 07/31/24 15:08 108 H 97 07/31/24 15:04 105 H 18 154/96 H 07/31/24 15:03 104 H 96 07/31/24 14:58 106 H 160/97 H 96 07/31/24 14:53 105 H 97 07/31/24 14:51 105 H 155/103 H 07/31/24 14:48 101 H 96 07/31/24 14:43 117 H 97 07/31/24 14:38 107 H 96 07/31/24 14:35 106 H 170/90 H 07/31/24 14:33 97 07/31/24 14:33 108 H 07/31/24 14:33 109 H 135/114 H 07/31/24 14:28 99 H 96 07/31/24 14:23 115 H 97 07/31/24 14:18 105 H 152/90 H 96 07/31/24 14:13 101 H 96 07/31/24 14:08 98 H 96 07/31/24 14:04 18 07/31/24 14:03 99 H 145/87 H 96 07/31/24 14:02 18 07/31/24 14:02 37.0 C 18 07/31/24 13:58 96 H 97 07/31/24 13:53 96 H 96 07/31/24 13:48 101 H 147/96 H 97 07/31/24 13:43 96 H 97 07/31/24 13:38 96 H 97 07/31/24 13:33 105 H 144/77 H 97 07/31/24 13:28 94 H 97 07/31/24 13:23 91 H 96 07/31/24 13:21 18 07/31/24 13:18 97 07/31/24 13:18 92 H 07/31/24 13:18 91 H 136/70 07/31/24 13:13 95 H 97 07/31/24 13:08 97 H 97 07/31/24 13:04 96 H 18 147/89 H 07/31/24 13:03 93 H 97 07/31/24 13:01 16 07/31/24 13:01 16 07/31/24 12:58 103 H 96 07/31/24 12:53 108 H 96 07/31/24 12:48 97 07/31/24 12:48 112 H 07/31/24 12:48 101 H 144/85 H 07/31/24 12:44 98 H 93 07/31/24 12:43 102 H 95 07/31/24 12:38 100 H 98 07/31/24 12:34 92 H 94 07/31/24 12:33 105 H 139/85 97 07/31/24 12:28 96 H 96 07/31/24 12:27 36.9 C 07/31/24 12:23 97 H 96 07/31/24 12:18 97 07/31/24 12:18 103 H 07/31/24 12:18 106 H 142/87 H 07/31/24 12:13 101 H 98 07/31/24 12:08 96 H 96 07/31/24 12:03 116 H 95 07/31/24 11:58 108 H 97 07/31/24 11:53 95 H 97 07/31/24 11:48 97 H 97 07/31/24 11:44 100 H 134/75 07/31/24 11:43 95 H 97 07/31/24 11:40 99 H 135/76 07/31/24 11:38 98 H 96 07/31/24 11:33 97 07/31/24 11:33 106 H 07/31/24 11:33 100 H 134/79 07/31/24 11:31 104 H 131/75 07/31/24 11:29 106 H 134/79 07/31/24 11:28 106 H 97 07/31/24 11:27 117 H 130/87 07/31/24 11:25 100 H 137/85 07/31/24 11:23 114 H 131/83 96 07/31/24 11:18 109 H 96 07/31/24 11:13 124 H 97 07/31/24 11:08 109 H 97 07/31/24 11:03 120 H 98 07/31/24 11:02 117 H 179/101 H 07/31/24 10:58 112 H 98 07/31/24 10:53 116 H 97 07/31/24 10:48 97 H 96 07/31/24 10:43 113 H 99 07/31/24 10:17 88 126/71 07/31/24 10:15 18 07/31/24 10:02 104 H 18 155/98 H 07/31/24 09:46 90 127/74 07/31/24 09:32 93 H 134/79 07/31/24 09:18 86 16 125/73 07/31/24 08:00 75 143/92 H 07/31/24 07:47 75 138/90 07/31/24 07:30 78 148/98 H 07/31/24 07:17 73 144/93 H 07/31/24 07:01 20 07/31/24 07:01 36.3 C L 20 07/31/24 07:00 71 139/91 Coding Level of Care Code None Diagnoses Preeclampsia O14.90
--- NOTE | 2024-07-31 19:23 | Labor Progress Brief Note ---
Date of Service July 31, 2024 Assessment & Plan (1) Preeclampsia: Plan making slow progress, pushing for two hours. Will be a long push but I think she can accomplish a vaginal delivery. Fetus tolerating pushing well. Admission and Anticipated Discharge Date Admission Date: July 31, 2024 Physical Exam Physical Exam: c/c/+1 toco--q2-3 efm--150s wtih mod variability, variables with pushing. Results & Data Vital Signs (Past 12 Hours) Vital Signs Temp Pulse Resp BP Pulse Ox 07/31/24 19:18 129 H 173/88 H 96 07/31/24 19:13 151 H 97 07/31/24 19:08 142 H 95 07/31/24 19:03 117 H 172/98 H 97 07/31/24 18:58 131 H 95 07/31/24 18:53 110 H 94 07/31/24 18:48 129 H 96 07/31/24 18:43 122 H 96 07/31/24 18:38 120 H 95 07/31/24 18:33 96 07/31/24 18:33 114 H 07/31/24 18:33 123 H 138/66 07/31/24 18:28 127 H 97 07/31/24 18:26 115 H 131/73 07/31/24 18:23 121 H 97 07/31/24 18:18 114 H 95 07/31/24 18:17 20 07/31/24 18:13 119 H 96 07/31/24 18:08 122 H 97 07/31/24 18:03 119 H 96 07/31/24 17:58 121 H 96 07/31/24 17:53 118 H 96 07/31/24 17:48 122 H 96 07/31/24 17:43 108 H 94 07/31/24 17:42 20 07/31/24 17:42 37.7 C H 20 07/31/24 17:38 110 H 97 07/31/24 17:34 111 H 159/89 H 07/31/24 17:33 121 H 95 07/31/24 17:28 124 H 97 07/31/24 17:23 126 H 97 07/31/24 17:18 118 H 143/103 H 96 07/31/24 17:13 120 H 97 07/31/24 17:08 108 H 96 07/31/24 17:04 18 07/31/24 17:03 110 H 140/87 96 07/31/24 16:59 16 07/31/24 16:59 16 07/31/24 16:58 109 H 96 07/31/24 16:53 107 H 97 07/31/24 16:49 105 H 144/89 H 07/31/24 16:48 106 H 97 07/31/24 16:43 108 H 97 07/31/24 16:38 106 H 97 07/31/24 16:34 107 H 164/99 H 07/31/24 16:33 106 H 97 07/31/24 16:28 105 H 95 07/31/24 16:23 104 H 96 07/31/24 16:19 102 H 153/94 H 07/31/24 16:18 102 H 96 07/31/24 16:13 103 H 97 07/31/24 16:10 18 07/31/24 16:10 36.6 C 18 07/31/24 16:08 110 H 95 07/31/24 16:03 98 H 134/73 97 07/31/24 15:59 20 07/31/24 15:59 20 07/31/24 15:58 110 H 91 07/31/24 15:53 105 H 96 07/31/24 15:49 107 H 168/91 H 07/31/24 15:48 111 H 97 07/31/24 15:43 122 H 97 07/31/24 15:38 112 H 97 07/31/24 15:33 97 07/31/24 15:33 109 H 07/31/24 15:33 104 H 169/93 H 94 07/31/24 15:28 115 H 96 07/31/24 15:23 102 H 96 07/31/24 15:18 104 H 156/93 H 96 07/31/24 15:13 104 H 95 07/31/24 15:08 108 H 97 07/31/24 15:04 105 H 18 154/96 H 07/31/24 15:03 104 H 96 07/31/24 14:58 106 H 160/97 H 96 07/31/24 14:53 105 H 97 07/31/24 14:51 105 H 155/103 H 07/31/24 14:48 101 H 96 07/31/24 14:43 117 H 97 07/31/24 14:38 107 H 96 07/31/24 14:35 106 H 170/90 H 07/31/24 14:33 97 07/31/24 14:33 108 H 07/31/24 14:33 109 H 135/114 H 07/31/24 14:28 99 H 96 07/31/24 14:23 115 H 97 07/31/24 14:18 105 H 152/90 H 96 07/31/24 14:13 101 H 96 07/31/24 14:08 98 H 96 07/31/24 14:04 18 07/31/24 14:03 99 H 145/87 H 96 07/31/24 14:02 18 07/31/24 14:02 37.0 C 18 07/31/24 13:58 96 H 97 07/31/24 13:53 96 H 96 07/31/24 13:48 101 H 147/96 H 97 07/31/24 13:43 96 H 97 07/31/24 13:38 96 H 97 07/31/24 13:33 105 H 144/77 H 97 07/31/24 13:28 94 H 97 07/31/24 13:23 91 H 96 07/31/24 13:21 18 07/31/24 13:18 97 07/31/24 13:18 92 H 07/31/24 13:18 91 H 136/70 07/31/24 13:13 95 H 97 07/31/24 13:08 97 H 97 07/31/24 13:04 96 H 18 147/89 H 07/31/24 13:03 93 H 97 07/31/24 13:01 16 07/31/24 13:01 16 07/31/24 12:58 103 H 96 07/31/24 12:53 108 H 96 07/31/24 12:48 97 07/31/24 12:48 112 H 07/31/24 12:48 101 H 144/85 H 07/31/24 12:44 98 H 93 07/31/24 12:43 102 H 95 07/31/24 12:38 100 H 98 07/31/24 12:34 92 H 94 07/31/24 12:33 105 H 139/85 97 07/31/24 12:28 96 H 96 07/31/24 12:27 36.9 C 07/31/24 12:23 97 H 96 07/31/24 12:18 97 07/31/24 12:18 103 H 07/31/24 12:18 106 H 142/87 H 07/31/24 12:13 101 H 98 07/31/24 12:08 96 H 96 07/31/24 12:03 116 H 95 07/31/24 11:58 108 H 97 07/31/24 11:53 95 H 97 07/31/24 11:48 97 H 97 07/31/24 11:44 100 H 134/75 07/31/24 11:43 95 H 97 07/31/24 11:40 99 H 135/76 07/31/24 11:38 98 H 96 07/31/24 11:33 97 07/31/24 11:33 106 H 07/31/24 11:33 100 H 134/79 07/31/24 11:31 104 H 131/75 07/31/24 11:29 106 H 134/79 07/31/24 11:28 106 H 97 07/31/24 11:27 117 H 130/87 07/31/24 11:25 100 H 137/85 07/31/24 11:23 114 H 131/83 96 07/31/24 11:18 109 H 96 07/31/24 11:13 124 H 97 07/31/24 11:08 109 H 97 07/31/24 11:03 120 H 98 07/31/24 11:02 117 H 179/101 H 07/31/24 10:58 112 H 98 07/31/24 10:53 116 H 97 07/31/24 10:48 97 H 96 07/31/24 10:43 113 H 99 07/31/24 10:17 88 126/71 07/31/24 10:15 18 07/31/24 10:02 104 H 18 155/98 H 07/31/24 09:46 90 127/74 07/31/24 09:32 93 H 134/79 07/31/24 09:18 86 16 125/73 07/31/24 08:00 75 143/92 H 07/31/24 07:47 75 138/90 07/31/24 07:30 78 148/98 H Coding Level of Care Code None Diagnoses Preeclampsia O14.90
[2024-07-31] MEDS: miSOPROStoL 200 MCG TAB PR ONE (20:33)
[2024-07-31] MEDS: CARBOPROST TROMETHAMINE 250 MCG/ML AMPUL IM ONE (20:56)
--- NOTE | 2024-07-31 21:28 | Delivery Summary ---
Vaginal Delivery Summary Date of Service July 31, 2024 Vaginal Delivery Summary and 2nd Degree LAC (complicated with bilateral sulcal tears) Pre-operative Diagnosis: at 40 weeks severe pet Post-operative Diagnosis: same thick meconium at delivery pph secondary to vaginal laceration Procedure: magnesium sulfate prophylaxis pitocin augmentation epidural stellate vaginal tear and second degree laceration repair QBL: 611cc Anesthesia: epidural Procedure: The patient presented to labor and delivery with s/s of pet and elevated lfts. Mag prophylaxis was started. Patient was maria luisa and perhaps in early labor and so pitocin augmentation was started. She eventually got an epidural , arom for clear fluid, and then progressed really slowly to c/c/0 station. During the labor, the fetus had an intermittently category 2 strip with an occasional late appearing decel, but these always resolved with postion change. During pushing the baseline was 150s with mod variability, but variables with pushing. The patient pushed for 3+ hours and pushed the baby to +4. She delivered slowly over the next contraction a viable male in deidra position. A large amount of brown meconium came out after delivery of the head. The nose and mouth were bulb suctioned on the perineum and the rest of the infant was then delivered without difficulty after a loose nuchal cord was reduced. The baby was not vigorous and floppy. the cord was clamped and cut and the was taken to the bed for attention and resuscitation. Please see that note. Cord blood and segment obtained. Placenta delivered spontaneous, intact with a three vessel cord. Cervix/sulci/rectum were intact. A complicated bilateral sulcal laceration and a second degree perineal laceration was repaired with some difficulty. There was alot of bleeding from this that was eventually controlled. 3-0 vicryl was used at the top of each vaginal laceration, met in the middle and then the perineum was repaired. There was some mild uterine atrophy as well, and Hemostasis obtained with dilute pitocin and fundal massage, rectal cytotec and im hemobate. Apgars were 2, 6,9. QBL was as noted above but my estimate was closer to 1000cc. Baby is in the nursery doing well. Mother will remain on labor and delivery on mag prophylaxis. Checking an h/h currently. [facility] [place] Charge Delivery Type Details: and 2nd Degree LAC (complicated with bilateral sulcal tears)
--- NOTE | 2024-07-31 21:38 | Anesthesia Procedure Note ---
Date of Service July 31, 2024 Anesthesia Post Epidural Note Vital Signs Vital Signs: Temp Pulse Resp BP Pulse Ox O2 Del Method 37.0 C 98 H 20 149/77 H 97 Room Air 07/31/24 19:22 07/31/24 21:33 07/31/24 18:17 07/31/24 21:30 07/31/24 21:33 07/31/24 05:50 Pain Intensity Bilateral Abdomen: Pain Intensity: 6 Notes Mental Status: alert / awake / arousable and participated in evaluation Nausea / Vomiting: adequately controlled Pain: adequately controlled Airway Patency, RR, SpO2: stable & adequate BP & HR: stable & adequate Hydration State: stable & adequate Neuraxial Anesthesia: was administered and sensory block is resolving Anesthetic Complications: no major complications apparent Epidural: Removed without complications and With tip intact
[2024-07-31 21:49] LABS: Hemoglobin 12.6 g/dl (12.0-16.0)
[2024-07-31 21:51] LABS: Base Excess Cord Venous Blood -12.6 mEq/L (-7.7-1.9); Cord Venous Blood HCO3 17 mmol/L (18.4-26.8); Cord Venous Blood PCO2 50 mmHg (30.4-57.2); Cord Venous Blood PO2 23 mmHg (14.1-43.3); Cord Venous Blood pH 7.13 (7.20-7.44); O2 Saturation Cord Venous Bld < 60.0 % (<68)
[2024-07-31 21:52] LABS: CO2 Cord Arterial Blood 67 mmHg (39.1-73.5); HCO3 Cord Arterial Blood 17 mmol/L (19.7-28.5); Oxygen Sat Cord Arterial Blood < 60.0 % (<60); PO2 Cord Arterial Blood < 20 mmHg (4.1-31.7); pH Cord Arterial Blood 7.01 (7.1-7.38)
[2024-07-31] MEDS ORDERED: ACETAMINOPHEN 325 MG TAB PO PRN (22:05)
[2024-07-31] MEDS ORDERED: bisacodyL 10 MG SUPP PR PRN (22:05)
[2024-07-31] MEDS ORDERED: HYDROCORTISONE ACETATE 25 MG SUPP PR PRN (22:05)
[2024-07-31] MEDS ORDERED: oxyCODONE/ACETAMINOPHEN 5mg/325mg TAB PO PRN (22:05)
[2024-08-01] MEDS: BENZOCAINE 20% SPRY 85 APPLN/85 GM CAN EXT PRN
[2024-08-01] MEDS: IBUPROFEN 600 MG TAB PO PRN (00:01)
[2024-08-01] MEDS: ePHEDrine sulfate 50 MG/ML AMP ONE (00:43)
[2024-08-01] MEDS: DIPHTHER/TETAN/PERTUS Vaccine (Tdap, Adol/Adult) 0.5mL IM ONE (00:43)
[2024-08-01 07:54] LABS: Mean Corpuscular Hemoglobin 28.4 pg (25.0-34.0); Mean Corpuscular Hgb Conc 34.4 g/dL (32.0-36.0); Mean Corpuscular Volume 82.7 fL (80.0-100.0); Mean Platelet Volume 10.3 fL (9.4-12.4); Platelet Count 201 K/uL (130-400); RDW Coefficient of Variation 14.5 % (11.5-14.5); RDW Standard Deviation 43.2 fL (36.4-46.3); Red Blood Count 3.87 M/uL (4.20-5.40); White Blood Count 27.08 K/ul (4.8-10.8)
--- NOTE | 2024-08-01 07:57 | Obstetrical Progress Note ---
Date of Service August 01, 2024 Assessment & Plan (1) Preeclampsia: (2) care and examination: Plan Patient doing well. Bleeding good. Blood pressures are improved. Continue Mag for 24 hours. Good uop, >100cc per hour. Day #:: 1 Subjective Ambulation: limited ambulation Voiding: muir catheter in place Passing Gas:: No Diet Tolerance:: clear liquids Lochia:: Small Feeding Type:: breast feeding Patient feeling much better. Notes no pet symptoms. Notes her vision has cleared. Bleeding minimal at this point. BPS are good. cbc back and h/h are good. cmp pending. Physical Exam Constitutional WD/WN, vitals as above Respiratory normal respiratory effort, lungs clear to auscultation Cardiovascular RRR, no murmur, no edema Extremities: no calf tenderness and no edema Gastrointestinal (Abdomen) soft, nt, nd, ff/ nt at u Neurologic patellar DTR's 2+ bilat, sensation intact Psychiatric A+Ox3, euthymic affect Results & Data Vital Signs (Past 12 Hours) Vital Signs Temp Pulse Resp BP Pulse Ox 08/01/24 07:51 101 H 94 08/01/24 07:46 98 H 94 08/01/24 07:41 96 H 95 08/01/24 07:36 99 H 94 08/01/24 07:31 92 H 97 08/01/24 07:26 96 H 96 08/01/24 07:21 95 H 96 08/01/24 07:16 96 H 96 08/01/24 07:11 98 H 95 08/01/24 07:10 96 H 131/85 08/01/24 07:06 104 H 95 08/01/24 07:01 103 H 94 08/01/24 06:56 104 H 97 08/01/24 06:51 99 H 95 08/01/24 06:46 92 H 95 08/01/24 06:41 91 H 95 08/01/24 06:36 96 H 95 08/01/24 06:31 92 H 95 08/01/24 06:26 93 H 96 08/01/24 06:21 93 H 96 08/01/24 06:20 20 08/01/24 06:16 95 H 96 08/01/24 06:11 93 H 97 08/01/24 06:06 98 H 96 08/01/24 06:01 95 08/01/24 06:01 93 H 08/01/24 06:01 90 136/86 08/01/24 05:56 95 H 95 08/01/24 05:51 94 H 95 08/01/24 05:46 95 H 96 08/01/24 05:41 96 H 96 08/01/24 05:36 96 H 95 08/01/24 05:31 101 H 95 08/01/24 05:26 104 H 94 08/01/24 05:21 99 H 96 08/01/24 05:16 98 H 95 08/01/24 05:15 18 08/01/24 05:11 104 H 95 08/01/24 05:06 96 H 94 08/01/24 05:01 94 08/01/24 05:01 96 H 08/01/24 05:01 103 H 120/76 08/01/24 04:56 97 H 94 08/01/24 04:51 96 H 94 08/01/24 04:46 98 H 93 08/01/24 04:41 97 H 93 08/01/24 04:36 96 H 94 08/01/24 04:30 16 08/01/24 04:26 93 H 95 08/01/24 04:21 94 H 95 08/01/24 04:16 98 H 95 08/01/24 04:11 95 H 96 08/01/24 04:06 93 H 95 08/01/24 04:01 95 H 136/86 95 08/01/24 03:56 95 H 95 08/01/24 03:51 95 H 95 08/01/24 03:46 96 H 94 08/01/24 03:41 98 H 95 08/01/24 03:36 95 H 95 08/01/24 03:31 98 H 95 08/01/24 03:26 104 H 95 08/01/24 03:21 100 H 94 08/01/24 03:16 97 H 95 08/01/24 03:11 99 H 96 08/01/24 03:06 95 H 96 08/01/24 03:01 96 08/01/24 03:01 107 H 08/01/24 03:01 96 H 135/87 08/01/24 03:00 18 08/01/24 03:00 36.7 C 08/01/24 02:56 96 H 97 08/01/24 02:52 98 H 87 L 08/01/24 02:51 100 H 94 08/01/24 02:46 91 H 96 08/01/24 02:41 91 H 95 08/01/24 02:36 93 H 95 08/01/24 02:31 90 96 08/01/24 02:26 95 H 95 08/01/24 02:21 89 95 08/01/24 02:16 92 H 95 08/01/24 02:15 16 08/01/24 02:11 93 H 95 08/01/24 02:06 92 H 95 08/01/24 02:01 95 08/01/24 02:01 94 H 08/01/24 02:01 93 H 139/84 08/01/24 01:56 94 H 95 08/01/24 01:51 91 H 95 08/01/24 01:46 93 H 95 08/01/24 01:41 93 H 95 08/01/24 01:36 95 H 95 08/01/24 01:31 93 H 95 08/01/24 01:26 91 H 96 08/01/24 01:21 97 H 95 08/01/24 01:16 95 H 95 08/01/24 01:14 16 08/01/24 01:11 96 H 95 08/01/24 01:06 93 H 96 08/01/24 01:01 96 H 132/87 96 08/01/24 00:56 96 H 94 08/01/24 00:51 95 H 95 08/01/24 00:46 96 H 95 08/01/24 00:41 96 H 95 08/01/24 00:36 93 H 95 08/01/24 00:31 90 95 08/01/24 00:26 95 H 95 08/01/24 00:21 94 H 96 08/01/24 00:16 93 H 97 08/01/24 00:11 96 H 97 08/01/24 00:10 16 08/01/24 00:06 95 H 97 08/01/24 00:01 99 H 96 07/31/24 23:56 103 H 96 07/31/24 23:51 100 H 98 07/31/24 23:47 102 H 86 L 07/31/24 23:46 100 H 94 07/31/24 23:41 100 H 96 04/12/25 23:33 100 H 97 07/31/24 23:30 18 07/31/24 23:30 100 H 149/92 H 07/31/24 23:28 107 H 97 07/31/24 23:23 105 H 97 07/31/24 23:18 100 H 96 07/31/24 23:15 36.9 C 18 07/31/24 23:15 161/86 H 07/31/24 23:13 104 H 96 07/31/24 23:08 103 H 96 07/31/24 23:03 104 H 96 07/31/24 23:00 106 H 153/93 H 07/31/24 22:58 106 H 97 07/31/24 22:53 103 H 96 07/31/24 22:48 112 H 94 07/31/24 22:45 110 H 157/94 H 07/31/24 22:43 119 H 95 07/31/24 22:38 113 H 94 07/31/24 22:33 119 H 94 07/31/24 22:28 121 H 97 07/31/24 22:23 117 H 97 07/31/24 22:18 115 H 97 07/31/24 22:15 18 07/31/24 22:15 16 07/31/24 22:15 107 H 164/86 H 07/31/24 22:13 111 H 95 07/31/24 22:08 109 H 95 07/31/24 22:03 112 H 95 07/31/24 22:00 18 07/31/24 22:00 108 H 156/93 H 07/31/24 21:58 110 H 96 07/31/24 21:53 105 H 96 07/31/24 21:48 96 H 96 07/31/24 21:45 16 07/31/24 21:45 94 H 158/98 H 07/31/24 21:43 96 H 98 07/31/24 21:38 98 H 97 07/31/24 21:33 98 H 97 07/31/24 21:30 16 07/31/24 21:30 97 H 149/77 H 07/31/24 21:28 100 H 96 07/31/24 21:23 100 H 95 07/31/24 21:18 101 H 96 07/31/24 21:15 16 07/31/24 21:15 18 07/31/24 21:15 101 H 150/80 H 07/31/24 21:13 101 H 94 07/31/24 21:08 102 H 99 07/31/24 21:03 103 H 150/82 H 99 07/31/24 21:02 107 H 145/87 H 07/31/24 20:58 111 H 99 07/31/24 20:53 111 H 118/59 L 99 07/31/24 20:48 116 H 111/56 L 98 07/31/24 20:44 117 H 148/67 H 07/31/24 20:43 118 H 98 07/31/24 20:40 120 H 153/64 H 07/31/24 20:38 118 H 97 07/31/24 20:34 127 H 171/79 H 07/31/24 20:33 128 H 180/90 H 95 07/31/24 20:28 119 H 93 07/31/24 20:23 144 H 98 07/31/24 20:21 142 H 199/100 H 07/31/24 20:20 133 H 201/105 H 07/31/24 20:18 160 H 97 07/31/24 20:13 124 H 96 07/31/24 20:08 125 H 97 07/31/24 20:04 133 H 175/98 H 07/31/24 20:03 135 H 96 07/31/24 19:58 153 H 97
[2024-08-01 08:12] LABS: Albumin Globulin Ratio 1.1 (0.9-2); Albumin Level 2.7 gm/dl (3.4-5.0); Bilirubin,Total 0.8 mg/dl (0.2-1.0); Calcium 6.7 mg/dl (8.6-10.3); Creatinine Clr Calc Pharmacy 118.1 ml/min; Globulin 2.4 gm/dl (2.5-4.0); Potassium 4.1 mmol/L (3.5-5.1); Total Protein 5.1 gm/dl (6.0-8.3)
[2024-08-01] MEDS: PRENATAL VITAMIN 1 TAB PO SCH (12:12)
[2024-08-01] MEDS: DOCUSATE SODIUM 100 MG CAP PO SCH (12:12)
[2024-08-01] MEDS: bisacodyL 5 MG TABEC PO SCH (22:55)
[2024-08-02 06:28] LABS: Hematocrit (blood only) 27.8 % (37.0-47.0); Hemoglobin 9.3 g/dl (12.0-16.0); Mean Corpuscular Hemoglobin 28.4 pg (25.0-34.0); Mean Corpuscular Hgb Conc 33.5 g/dL (32.0-36.0); Mean Platelet Volume 10.2 fL (9.4-12.4); Platelet Count 158 K/uL (130-400); RDW Coefficient of Variation 14.9 % (11.5-14.5); RDW Standard Deviation 45.8 fL (36.4-46.3); Red Blood Count 3.27 M/uL (4.20-5.40); White Blood Count 14.05 K/ul (4.8-10.8)
--- NOTE | 2024-08-02 06:42 | Obstetrical Progress Note ---
Date of Service August 02, 2024 Assessment & Plan (1) care and examination: (2) Preeclampsia: Plan PPD#2 following at 40 wga, c/b severe pet, pph >600cc: now stable, off mag, BP wnl. GBS+ s/p pen G, Rh+, RI, H/H noted Continue routine care, OOB and ambulation, diet as tolerated Plan for today: work on , would like to meet w/ benefits consultant Admission and Anticipated Discharge Date Admission Date: July 31, 2024 Supervising Physician Co-Signing Physician Notes Resident Physician Supervision Note: I interviewed and examined the patient. Discussed with resident of record and agree with findings and plan as documented in the note. Any exceptions or clarifications are listed here: PPD 2, s/p with complicated vaginal repair. off mag now for about 12 hours for severe pet. Her pressures look great. She has no s/s of pet. Plan to monitor sx closely, jd blood pressures. If all looks well, plan d/c tomorrow. lfts were improving yesterday. hgb 9.3, appropriate drop for her blood loss, asymptomatic. Documented By: Mis Blackburn MD, FACOG Subjective Patient is a 29yo who is PPD#2 following at 40 weeks. Reports mild abd pain/cramping, well managed on analgesics Voiding w/o issue, tolerating meals, ambulating normally, +BM Lochia minimal, diminishing Planning to breastfeed, having some difficulty w/ latching Review of Systems 2 Constitutional: no fever, no chills and no sweats Respiratory: no dyspnea Cardiovascular: no chest pain, no palpitations and no calf pain Gastrointestinal: no nausea and no vomiting Genitourinary: no dysuria Neurologic: no headache(s) Physical Exam 2 Physical Exam: General: Alert, oriented. No acute distress. Cardiac: Regular rate and rhythm, no murmurs, rubs, or gallops. Respiratory: Clear to auscultation bilaterally. No increased work of breathing. Symmetrical chest rise. No respiratory distress. Abdomen: Soft, nontender, nondistended. Bowel sounds present. Uterus: Uterine fundus firm, nontender, palpable 1 cm below the umbilicus. Lower extremities: No lower extremity edema or swelling. No deep calf pain. Results & Data Vital Signs (Past 12 Hours) Vital Signs Temp Pulse Pulse Resp BP BP Pulse Ox 08/02/24 00:26 36.8 C 77 16 121/75 08/01/24 21:30 37.1 C 94 H 20 138/79 96 08/01/24 21:14 94 H 96 08/01/24 21:09 95 H 97 08/01/24 21:04 91 H 97 08/01/24 21:01 85 138/79 08/01/24 20:59 85 96 08/01/24 20:54 92 H 96 08/01/24 20:49 88 97 08/01/24 20:44 92 H 96 08/01/24 20:39 94 H 96 08/01/24 20:34 96 H 97 08/01/24 20:29 96 H 96 08/01/24 20:24 96 H 96 08/01/24 20:19 95 H 97 08/01/24 20:14 96 H 96 08/01/24 20:09 105 H 97 08/01/24 20:04 103 H 97 08/01/24 20:01 95 H 132/75 08/01/24 20:00 18 08/01/24 19:59 97 H 97 08/01/24 19:54 96 H 96 08/01/24 19:49 95 H 96 08/01/24 19:44 97 H 96 08/01/24 19:39 97 H 96 08/01/24 19:34 94 H 96 08/01/24 19:29 94 H 96 08/01/24 19:24 94 H 96 08/01/24 19:19 91 H 97 08/01/24 19:14 92 H 96 08/01/24 19:09 90 97 08/01/24 19:04 106 H 96 08/01/24 19:01 96 H 139/82 08/01/24 18:59 100 H 96 08/01/24 18:54 102 H 96 08/01/24 18:49 97 H 96 08/01/24 18:44 96 H 96 O2 Del Method 08/02/24 00:26 Room Air 08/01/24 21:30 Room Air 08/01/24 21:14 08/01/24 21:09 08/01/24 21:04 08/01/24 21:01 08/01/24 20:59 08/01/24 20:54 08/01/24 20:49 08/01/24 20:44 08/01/24 20:39 08/01/24 20:34 08/01/24 20:29 08/01/24 20:24 08/01/24 20:19 08/01/24 20:14 08/01/24 20:09 08/01/24 20:04 08/01/24 20:01 08/01/24 20:00 08/01/24 19:59 08/01/24 19:54 08/01/24 19:49 08/01/24 19:44 08/01/24 19:39 08/01/24 19:34 08/01/24 19:29 08/01/24 19:24 08/01/24 19:19 08/01/24 19:14 08/01/24 19:09 08/01/24 19:04 08/01/24 19:01 08/01/24 18:59 08/01/24 18:54 08/01/24 18:49 08/01/24 18:44 Laboratory Results 08/02/24 05:47 08/01/24 07:28 Resident Activity Tracking Resident Involvement: Resident Care Provided Care Provided: Adult Hospital Medicine and OB Delivery
[2024-08-02 19:42] VITALS: O2SAT 98
[2024-08-03 00:12] VITALS: RESP 16
--- NOTE | 2024-08-03 06:51 | Obstetrical Progress Note ---
Date of Service August 03, 2024 Assessment & Plan (1) care and examination: (2) Preeclampsia: Plan PPD#3 following at 40 wga, c/b severe pet, pph >600cc: now stable. GBS+ s/p pen G, Rh+, RI, vitals wnl Continue routine care, OOB and ambulation, diet as tolerated Plan for DC later today Will need BP check Thurs/Fri Admission and Anticipated Discharge Date Admission Date: July 31, 2024 Supervising Physician Co-Signing Physician Notes Resident Physician Supervision Note: I interviewed and examined the patient. Discussed with Dr. Velez and agree with findings and plan as documented in the note. Any exceptions or clarifications are listed here: No pre-eclampsia symptoms. There was one BP elevation last evening ( patient asymptomatic) and BP's have returned to normal since then. Documented By: Dasha Potts MD, FACOG Subjective Patient is a 29yo who is PPD#3 following at 40 weeks. Reports minimal abd pain/cramping, well managed on analgesics Voiding w/o issue, tolerating meals, ambulating normally, +BM Lochia minimal, diminishing No BAPTISTE, visual disturbances, dizziness Does have some R knee swelling w/o redness, tenderness, or restricted ROM Planning to breastfeed Review of Systems Constitutional: no fever, no chills and no sweats Respiratory: no dyspnea Cardiovascular: no chest pain, no palpitations and no calf pain Gastrointestinal: no nausea and no vomiting Genitourinary: no dysuria Neurologic: no headache(s) Physical Exam Physical Exam: General: Alert, oriented. No acute distress. Cardiac: Regular rate and rhythm, no murmurs, rubs, or gallops. Respiratory: Clear to auscultation bilaterally. No increased work of breathing. Symmetrical chest rise. No respiratory distress. Abdomen: Soft, nontender, nondistended. Bowel sounds present. Uterus: Uterine fundus firm, nontender, palpable 1 cm below the umbilicus. Lower extremities: No lower extremity edema or swelling. No deep calf pain. Results & Data Vital Signs (Past 12 Hours) Vital Signs Temp Pulse Pulse Resp BP BP Pulse Ox 08/03/24 03:05 132/87 08/03/24 00:05 36.7 C 66 16 144/84 H 98 08/02/24 20:30 144/88 H 142/84 H 08/02/24 19:00 37.1 C 78 18 148/88 H 98 O2 Del Method 08/03/24 03:05 08/03/24 00:05 Room Air 08/02/24 20:30 08/02/24 19:00 Room Air Resident Activity Tracking Resident Involvement: Resident Care Provided Care Provided: Adult Hospital Medicine and OB Delivery (2) Preeclampsia Trimester: third trimester Qualified Code(s): O14.93 - Unspecified pre- eclampsia, third trimester
[2024-08-03 07:44] VITALS: TEMP 98.6
[2024-08-03 09:07] VITALS: BP 142/84; PULSE 78
== END 2024-08-03 12:15 | disposition home or self-care (01) | DRG 806 ==
LOC: OPB 05:21 → 4S1 05:22 → 4E2 08-01 22:10